=== PATIENT | female | born 1980 | race Caucasian/White ===

== ENCOUNTER 2019-08-17 17:40 | Emergency (ER) | payer BC, SELFPAY ==
--- NOTE | ~2019-08-17 | XR_ITS ---
EXAMINATION: XR wrist RT min 3V INDICATION: Right wrist pain, initial encounter TECHNIQUE: Four views of the right wrist are obtained. COMPARISON: None available FINDINGS: There is dorsal soft tissue swelling of the wrist. No fracture, dislocation, or subluxation is identified. The joint spaces are normal. IMPRESSION: 1. Soft tissue swelling without acute osseous abnormality. Reviewed, dictated and finalized at location A.
[2019-08-17 17:46] VITALS: BP 134/85; PULSE 87; RESP 16; TEMP 37.3; O2SAT 98
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
== END 2019-08-17 18:35 | disposition home or self-care (01) ==
PROVIDERS: Emergency Provider Registered Nurse; PCP Family Medicine
DX: S60.211A Contusion of right wrist, initial encounter (principal); F17.210 Nicotine dependence, cigarettes, uncomplicated; W37.0XXA Explosion of bicycle tire, initial encounter
CPT/HCPCS: 73110; 99203; G0463